=== PATIENT | female | born 1965 | race Caucasian/White ===

== ENCOUNTER 2024-05-21 21:02 | Observation (INO) | payer OTHER ==
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
[2024-05-21 21:40] LABS: Basophils % (A) 1 %; Eosinophils # (A) 0.1 k/uL (0-0.7); Eosinophils % (A) 2 %; HCT 39.8 % (34.0-46.0); HGB 13.3 gm/dL (11.4-16.0); Lymphocytes % (A) 31 %; MCH 33.6 pg (25.0-35.0); MCHC 33.3 g/dL (31.0-37.0); MCV 100.9 fL (80.0-100.0); Macrocytosis Slight; Mean Platelet Volume 8.4; Monocytes # (A) 0.4 k/uL (0-1.0); Monocytes % (A) 11 %; Neutrophils # (A) 1.7 k/uL (1.3-7.7); Neutrophils % (A) 52 %; Platelet Count 176 k/uL (150-450); RBC 3.95 m/uL (3.80-5.40); RDW 14.5 % (11.5-15.5); WBC 3.4 k/uL (3.8-10.6)
[2024-05-21 21:49] LABS: ALT 32 U/L (4-34); AST 49 U/L (14-36); African American GFR (CKD) >90 (>60 ml/min/1.73 sqM); Albumin 4.5 g/dL (3.5-5.0); Alcohol <10 mg/dL; Alkaline Phosphatase 65 U/L (38-126); Amylase 76 U/L (30-110); Anion Gap 7 mmol/L; Blood Urea Nitrogen 16 mg/dL (7-17); Calcium 9.4 mg/dL (8.4-10.2); Carbon Dioxide 28 mmol/L (22-30); Chloride 101 mmol/L (98-107); Glucose 96 mg/dL (74-99); Lipase 242 U/L (23-300); Magnesium 2.1 mg/dL (1.6-2.3); Non-African American GFR(CKD) >90 (>60 ml/min/1.73 sqM); Potassium 4.2 mmol/L (3.5-5.1); Sodium 136 mmol/L (137-145); Total Bilirubin 0.8 mg/dL (0.2-1.3); Total Protein 7.4 g/dL (6.3-8.2)
[2024-05-21 22:01] LABS: INR 0.9 (<1.2); Prothrombin Time 9.8 sec (10.0-12.5)
[2024-05-21] MEDS: THIAMINE 100 MG/ML 2 ML VIAL IM STA (22:18)
[2024-05-21] MEDS: PANTOPRAZOLE 40 MG/10 ML VIAL IVP STA (22:18)
[2024-05-21] MEDS: SODIUM CHLORIDE 0.9% 1,000 ML IV STA (22:19)
[2024-05-21 22:38] LABS: Appearance,Urine Clear (Clear); Bacteria,Urine Rare /hpf; Bilirubin,Urine Negative (Negative); Blood,Urine Negative (Negative); Color,Urine Colorless; Glucose,Urine (UA) Negative (Negative); Ketones,Urine Negative (Negative); Leukocyte Esterase,Urine Large (Negative); Mucus,Urine Rare /hpf; Nitrite,Urine Negative (Negative); Protein,Urine Negative (Negative); RBC,Urine 1 /hpf (0-5); Specific Gravity,Urine 1.014 (1.001-1.035); Squamous Epithelial Cell,Urine <1 /hpf (0-4); Transitional Epi Cells,Urine <1 /hpf (0-1); Urobilinogen,Urine <2.0 mg/dL (<2.0); WBC,Urine 29 /hpf (0-5)
[2024-05-21 23:19] LABS: Amphetamine Screen,Urine Not Detected (NotDetected); Barbiturate Screen,Urine Not Detected (NotDetected); Benzodiazepines Screen,Urine Detected (NotDetected); Cocaine Screen,Urine Not Detected (NotDetected); Methadone Screen, Urine Not Detected (NotDetected); Opiate Screen,Urine Not Detected (NotDetected); Oxycodone Screen, Urine Not Detected (NotDetected); Phencyclidine Screen,Urine Not Detected (NotDetected); Tricyclic Antidepressant,Urine Not Detected (NotDetected); Urn Cannabinoid Scrn Not Detected (NotDetected)
[2024-05-21] MEDS ORDERED: NALOXONE 0.4 MG/ML 1 ML VIAL IV PRN (23:39)
[2024-05-21] MEDS ORDERED: KETOROLAC 15 MG/ML 1 ML VIAL IVP PRN (23:39)
[2024-05-21] MEDS ORDERED: ONDANSETRON 4 MG/2 ML VIAL IVP PRN (23:39)
[2024-05-21] MEDS ORDERED: HYDROcodone/APAP 5-325MG 1 EACH TAB PO PRN (23:39)
[2024-05-21] MEDS ORDERED: ACETAMINOPHEN TAB 325 MG TAB PO PRN (23:39)
[2024-05-21] MEDS: LORazepam 2 MG/ML INJ IV STA (23:56)
[2024-05-22] MEDS: SODIUM CHLORIDE 0.9% 1,000 ML IV SCH (00:08)
[2024-05-22] MEDS: LORazepam 2 MG/ML INJ IV PRN ×4 (00:23→10:46)
[2024-05-22] MEDS: HALOPERIDOL LACTATE 5 MG/ML 1 ML VIAL IM STA (01:35)
[2024-05-22] MEDS: LORazepam 2 MG/ML INJ IV STA (01:38)
[2024-05-22] MEDS: PHENobarbital SODIUM 130 MG/ML 1 ML VIAL IV ONE (04:41)
[2024-05-22] MEDS: PANTOPRAZOLE 40 MG/10 ML VIAL IV SCH (09:02)
[2024-05-22] MEDS ORDERED: MULTIVITAMINS, THERA 1 EACH TAB PO PRN (14:42)
[2024-05-22] MEDS ORDERED: LOPERAMIDE 2 MG CAP PO PRN (14:42)
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
[2024-05-22] MEDS: FOLIC ACID 1 MG TAB PO SCH (17:40)
[2024-05-22] MEDS: chlordiazePOXIDE 25 MG CAP PO SCH (17:40)
[2024-05-22] MEDS: THIAMINE 100 MG TAB PO SCH (17:41)
[2024-05-22] MEDS: CALCIUM CARB-VIT D 500 MG-5 MCG TAB PO SCH (17:42)
[2024-05-22] MEDS: ENOXAPARIN 40 MG/0.4 ML SYRINGE SQ SCH (18:06)
[2024-05-22] MEDS: traZODone HCL 50 MG TAB PO SCH (21:04)
[2024-05-23 08:10] LABS: Basophils # (A) 0.1 k/uL (0-0.2); Basophils % (A) 1 %; Eosinophils # (A) 0.1 k/uL (0-0.7); Eosinophils % (A) 1 %; HCT 40.2 % (34.0-46.0); HGB 13.2 gm/dL (11.4-16.0); Lymphocytes # (A) 0.9 k/uL (1.0-4.8); Lymphocytes % (A) 12 %; MCH 33.6 pg (25.0-35.0); MCHC 32.8 g/dL (31.0-37.0); MCV 102.5 fL (80.0-100.0); Macrocytosis Slight; Mean Platelet Volume 7.2; Monocytes # (A) 0.5 k/uL (0-1.0); Monocytes % (A) 7 %; Neutrophils # (A) 5.4 k/uL (1.3-7.7); Neutrophils % (A) 77 %; Platelet Count 185 k/uL (150-450); RBC 3.92 m/uL (3.80-5.40); RDW 14.3 % (11.5-15.5); WBC 7.1 k/uL (3.8-10.6)
[2024-05-23 08:36] LABS: ALT 34 U/L (4-34); AST 54 U/L (14-36); African American GFR (CKD) >90 (>60 ml/min/1.73 sqM); Albumin 3.9 g/dL (3.5-5.0); Alkaline Phosphatase 71 U/L (38-126); Anion Gap 7 mmol/L; Blood Urea Nitrogen 6 mg/dL (7-17); Calcium 8.9 mg/dL (8.4-10.2); Carbon Dioxide 26 mmol/L (22-30); Chloride 102 mmol/L (98-107); Glucose 65 mg/dL (74-99); Magnesium 1.8 mg/dL (1.6-2.3); Non-African American GFR(CKD) >90 (>60 ml/min/1.73 sqM); Potassium 4.1 mmol/L (3.5-5.1); Sodium 135 mmol/L (137-145); Total Bilirubin 1.1 mg/dL (0.2-1.3); Total Protein 6.8 g/dL (6.3-8.2)
[2024-05-23 10:00] VITALS: RESP 16
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
[2024-05-23] MEDS: ACAMPROSATE CALCIUM 333 MG TABLET.DR PO SCH (16:25)
[2024-05-23] MEDS: SERTRALINE 25 MG TAB PO ONE (16:26)
[2024-05-24] MEDS: SERTRALINE 50 MG TAB PO SCH (09:17)
[2024-05-24] MEDS ORDERED: ACAMPROSATE CALCIUM 333 MG TABLET.DR PO SCH ×2 (10:01→16:00)
[2024-05-24 11:48] VITALS: BP 117/73; PULSE 60; TEMP 97.8
--- NOTE | 2024-05-24 12:29 | P.DS ---
Providers Date of admission: 05/22/24 02:42 Expected date of discharge: 05/24/24 Attending physician: Barrera Gutierrez Consults: 05/22/24 14:41 Consult Physician Routine Consulting Provider: Romario Hernandez Consult Reason/Comments: Alcohol withdrawal syndrome. Do you want consulting provider notified?: Yes Primary care physician: Stated None Hospital Course: Discharge diagnoses; Alcohol withdrawal syndrome: Patient has history of alcohol use disorder, sent from [place] for alcohol withdrawals symptoms with visual hallucinations and confusion. Monitor vital signs monitor CBC monitor CMP Thiamine, folic acid, multivitamin CIWA protocol with as needed Ativan Scheduled Librium Psychiatry recommended Continue tapering down Librium, reduced down to 20 mg 3 times daily for alcohol withdrawal. Continue with trazodone 50 mg nightly for insomnia, start Zoloft 50 mg daily for mood/anxiety, acamprosate 3 times daily for alcohol cravings -CIWA protocol with PRN Ativan for alcohol withdrawal. Continue to monitor vital signs. -Can discontinue 1:1 sitter at this time as patient is not currently an imminent threat to themselves Hospital course; 58-year-old female with past medical history significant for alcohol use disorder who checked into [place] 3 days ago for alcohol intoxication, was sent to the ED for alcohol withdrawal. Patient was exhibiting withdrawal symptoms with hallucinations and confusion. Patient was going through other peoples belongings and was rearranging furniture. In the ED patient was saying that the gave her fentanyl and stated she gets brain tumors when she is going through withdrawals. Patient currently confused, arousable but falls back quickly, sitter at bedside. Patient required multiple doses of Ativan overnight, also required phenobarbital for worsening withdrawal and agitation. Patient is afebrile, heart rate 50-65, respiratory rate 16, blood pressure 119/78, saturating 97% on room air. CBC was unremarkable. Lab work showed WBCs mildly low at 3.4, hemoglobin 13.3, MCV 100.9. Platelet 176. INR was 0.9. CMP was unremarkable except mildly elevated AST 49. UA showed 21 WBCs, large leukocyte esterase, urine drug screen positive for benzodiazepine. Patient admitted to internal medicine service 05/23. Patient seen and examined. Denies any auditory or visual hallucination. Denies any weakness of any extremity. Vital signs stable 05/24. Patient seen and examined.. CIWA scores have been low. Psych recommended to continue continue with trazodone 50 mg nightly for insomnia, start Zoloft 50 mg daily for mood/anxiety, acamprosate 3 times daily for alcohol cravings -CIWA protocol with PRN Ativan for alcohol withdrawal. Continue to monitor vital signs. -Can discontinue 1:1 sitter at this time as patient is not currently an imminent threat to themselves Being discharged to [place] PHYSICAL EXAMINATION: GENERAL: The patient is alert and oriented x3, not in any acute distress. Well developed, well nourished. HEENT: Pupils are round and equally reacting to light. EOMI. No scleral icterus. No conjunctival pallor. Normocephalic, atraumatic. No pharyngeal erythema. No t hyromegaly. CARDIOVASCULAR: S1 and S2 present. No murmurs, rubs, or gallops. PULMONARY: Chest is clear to auscultation, no wheezing or crackles. ABDOMEN: Soft, nontender, nondistended, normoactive bowel sounds. No palpable organomegaly. MUSCULOSKELETAL: No joint swelling or deformity. EXTREMITIES: No cyanosis, clubbing, or pedal edema. NEUROLOGICAL: Gross neurological examination did not reveal any focal deficits. SKIN: No rashes. Dictation was produced using [employer] dictation software. please excuse any grammatical, word or spelling errors. Plan - Discharge Summary Discharge Rx Participant: No New Discharge Prescriptions: New Acamprosate Calcium [Campral] 666 mg PO TID 7 Days #21 tab Sertraline [Zoloft] 50 mg PO DAILY #30 tab Continue Loperamide [Imodium] 4 mg PO QID PRN PRN Reason: Diarrhea Chlorpheniramine Maleate [Chlor-Trimeton] 4 mg PO Q4H PRN PRN Reason: Allergy Symptoms Ibuprofen [Motrin Ib] 600 mg PO Q6H PRN PRN Reason: Pain ondansetron HCL [Zofran] 8 mg PO Q6H Hyoscyamine Sulfate [Levsin] 0.125 mg PO QID PRN PRN Reason: abdominal cramping Thiamine [Vitamin B-1] 100 mg PO DAILY PRN PRN Reason: vitamin deficiency Mylanta 30 ml PO Q4H PRN PRN Reason: antacid Multivitamins, Thera [Multivitamin (formulary)] 1 tab PO DAILY PRN PRN Reason: vitamin deficiency Melatonin 10 mg PO HS traZODone HCL [Desyrel] 50 - 150 mg PO HS Acetaminophen Tab [Tylenol] 650 mg PO QID LORazepam [Ativan] 1 - 2 mg PO Q4H PRN PRN Reason: Alcohol Withdrawal Calcium/Magnesium/Zinc Vitamin D 334/134/5mg 1 tab PO TID Discharge Medication List Acetaminophen Tab [Tylenol] 650 mg PO QID 05/22/24 [History] Calcium/Magnesium/Zinc Vitamin D 334/134/5mg 1 tab PO TID 05/22/24 [History] Chlorpheniramine Maleate [Chlor-Trimeton] 4 mg PO Q4H PRN 05/22/24 [History] Hyoscyamine Sulfate [Levsin] 0.125 mg PO QID PRN 05/22/24 [History] Ibuprofen [Motrin Ib] 600 mg PO Q6H PRN 05/22/24 [History] LORazepam [Ativan] 1 - 2 mg PO Q4H PRN 05/22/24 [History] Loperamide [Imodium] 4 mg PO QID PRN 05/22/24 [History] Melatonin 10 mg PO HS 05/22/24 [History] Multivitamins, Thera [Multivitamin (formulary)] 1 tab PO DAILY PRN 05/22/24 [History] Mylanta 30 ml PO Q4H PRN 05/22/24 [History] Thiamine [Vitamin B-1] 100 mg PO DAILY PRN 05/22/24 [History] ondansetron HCL [Zofran] 8 mg PO Q6H 05/22/24 [History] traZODone HCL [Desyrel] 50 - 150 mg PO HS 05/22/24 [History] Acamprosate Calcium [Campral] 666 mg PO TID 7 Days #21 tab 05/24/24 [Rx] Sertraline [Zoloft] 50 mg PO DAILY #30 tab 05/24/24 [Rx] Follow up Appointment(s)/Referral(s): None,Stated [Primary Care Provider] - 1-2 days Discharge/Stand Alone Forms: AA Meetings [place], Outpatient Counseling, Inp Substance Abuse Facilities, Area PCPs Discharge Disposition: OTHER INSTITUTION NOT DEFINED
== END 2024-05-24 14:05 | disposition other institution (70) ==
LOC: EC 21:02 → 4SSUR 05-22 02:42 → 3SCARD 05-22 02:47
PROVIDERS: ADMIT Hospitalist; ATTEND Hospitalist
DX: F10.239 Alcohol dependence with withdrawal, unspecified (principal); F19.90 Other psychoactive substance use, unspecified, uncomplicated; F10.229 Alcohol dependence with intoxication, unspecified; Z65.3 Problems related to other legal circumstances; Z78.1 Physical restraint status; F32.A Depression, unspecified; G47.00 Insomnia, unspecified; Z79.899 Other long term (current) drug therapy; F41.9 Anxiety disorder, unspecified
CPT/HCPCS: 96376 ×4; 96361 ×4; 96372 ×2; 96374; 96375; 99285; 36415; 93005; 80053 ×2; 82150; 83690; 83735 ×2; 84100; 85025 ×2; 85610; 85730; 81001; 80306; 80320; G0378 ×3; J2060 ×2; J1630; J3411; J2560; J2470 ×4